=== PATIENT | female | born 1975 | race Caucasian/White ===

== ENCOUNTER 2017-04-02 14:33 | Emergency (ER) | payer MEDICAID ==
--- NOTE | 2017-04-02 15:07 | ED Physician Documentation ---
PD HPI DYSPNEA - Stated complaint Stated Complaint: SOA/HEART PALP - Chief complaint Chief Complaint: General - History obtained from History obtained from: Patient, Family - History of Present Illness Timing - onset: Last night Timing - onset during: Rest Timing - details: Still present Inciting event(s): Immobilization/travel Worsened by: Exertion Associated symptoms: Bilateral edema. No: Fever, Cough, Chest pain / discomfort Similar symptoms before: Diagnosis (prior history of pulmonary embolus in 2012.) , Other (status post heart transplant in 2008 for hypertrophic cardiomyopathy.) - Treatment prior to arrival Treatment prior to arrival: The patient took an extra dose of torsemide prior to arrival. - Additional information Additional information: The patient is a 41-year-old female who presents with dyspnea that started last night after a plane flight from [place]. She has a history of heart transplant for hypertrophic cardiomyopathy. She was diagnosed and treated for pulmonary embolus in 2012. She is no longer taking anticoagulation medication. She noticed bilateral leg swelling after the plane flight, so took an extra torsemide today. She denies cough or fever. She denies chest pain but does admit to slight chest tightness. She lives in [place], and is visiting here for and [facility]. Review of Systems Constitutional: denies: Fever Ears: denies: Tinnitus/ringing Nose: denies: Congestion Throat: denies: Sore throat Cardiac: reports: Chest pain / pressure (slight chest tightness.). denies: Palpitations Respiratory: reports: Dyspnea. denies: Cough GI: denies: Abdominal Pain, Nausea, Vomiting : denies: Dysuria Skin: denies: Rash Musculoskeletal: reports: Extremity swelling. denies: Back pain Neurologic: denies: Focal weakness, Numbness, Headache Psychiatric: reports: Anxiety PD PAST MEDICAL HISTORY - Past Medical History Respiratory: Pneumonia Endocrine/Autoimmune: None GI: Hiatal hernia CREW LEAD: None : None Psych: Depression, Anxiety, Panic attacks Derm: None - Past Surgical History Past Surgical History: Yes Cardiovascular: Other (S/P Heart Transplant in 2002.) - Present Medications Home Medications: Ambulatory Orders Medication Instructions Recorded Confirmed Effexor 37.5 mg ORAL BID 02/23/13 04/20/13 Magnesium Oxide 800 mg ORAL BID 02/23/13 04/20/13 Prograf 7.5 mg ORAL BID 02/23/13 04/20/13 Nystatin 100,000 unit PO Q4-6H 03/16/13 04/20/13 Omeprazole [PriLOSEC] 20 mg PO BID 03/16/13 04/20/13 Pravastatin Sodium 10 mg PO HS 03/16/13 04/20/13 Trazodone HCl 100 mg PO HS 03/16/13 04/20/13 Valganciclovir HCl [Valcyte] 450 mg PO DAILY 03/16/13 04/20/13 Torsemide [Demadex] 10 mg PO DAILY #30 tablet 04/21/13 Amoxicillin 500 mg PO TID 10 Days 01/02/14 Calcium Carbonate/Vitamin D3 1 each PO DAILY 01/02/14 01/02/14 [Calcium 500 + D Tablet] Mycophenolic Acid 720 mg PO BID 01/02/14 01/02/14 Potassium Chloride 10 meq PO BID 01/02/14 01/02/14 PredniSONE [PredniSONE INTENSOL] 5 mg PO DAILY 01/02/14 01/02/14 Vitamin [Trinatal Rx 1] 1 each PO DAILY 01/02/14 01/02/14 Senna [Senokot] 8.6 mg PO DAILY 01/02/14 01/02/14 Sulfamethoxazole/Trimethoprim 1 each PO BID 01/02/14 01/02/14 [Sulfamethoxazole-Tmp Ds Tablet] Tacrolimus 6 mg PO DAILY 01/02/14 01/02/14 Tacrolimus [Hecoria] 7 mg PO DAILY 01/02/14 01/02/14 LORazepam [Ativan] 0.5 mg PO Q8H PRN #15 tablet 04/02/17 - Allergies Allergies/Adverse Reactions: Allergies Allergy/AdvReac Type Severity Reaction Status Date / Time No Known Drug Allergies Allergy Verified 02/23/13 01:01 - Social History Does the pt smoke?: No Smoking Status: Never smoker Does the pt drink ETOH?: No Does the pt have substance abuse?: No - Immunizations Immunizations are current?: Yes - POLST Patient has POLST: No PD ED PE NORMAL - Vitals Vital signs reviewed: Yes (tachycardia) - General General: Alert and oriented X 3, Well developed/nourished - HEENT HEENT: Atraumatic, Pharynx benign - Neck Neck: No adenopathy, No JVD - Cardiac Cardiac: No murmur, Other (rapid rate, regular rhythm.) - Respiratory Respiratory: Clear bilaterally (No wheezes, rales, or rhonchi.) - Abdomen Abdomen: Soft, Non tender - Back Back: No CVA TTP - Derm Derm: No rash - Extremities Extremities: No calf tenderness / cord, Other (1+ pedal edema bilaterally.) - Neuro Neuro: Alert and oriented X 3, No motor deficit, No sensory deficit PD ED PE EXPANDED - Psych Psych: Anxious Results - Vitals Vitals: Vital Signs - 24 hr 04/02/17 04/02/17 04/02/17 14:41 17:35 18:06 Temperature 36.5 C 36.4 C L Heart Rate 120 H 111 H 108 H Respiratory 20 18 16 Rate Blood Pressure 129/96 H 117/96 H 122/79 O2 Saturation 99 100 99 04/02/17 04/02/17 18:10 18:25 Temperature Heart Rate 117 H 111 H Respiratory 18 Rate Blood Pressure 122/79 O2 Saturation 100 Oxygen O2 Source Room air - EKG (time done) 14:52 Rate: Rate (enter#) (117) Rhythm: Sinus tachycardia [place]: LAD, Anterior hemiblock Intervals: RBBB Ischemia: Q waves (in lateral precordial leads) Computer interpretation: Agree with computer - Labs Labs: Laboratory Tests 04/02/17 04/02/17 04/02/17 14:50 14:50 14:50 WBC 7.6 RBC 4.30 Hgb 13.1 Hct 40.0 MCV 93.0 MCH 30.5 MCHC 32.8 RDW 16.0 H Plt Count 126 L MPV 10.9 H Neut # 5.7 Lymph # 0.9 L [place] # 0.6 Eos # 0.4 Baso # 0.1 Absolute Nucleated RBC 0.00 Nucleated RBCs 0.0 D-Dimer 848.1 H Sodium 138 Potassium 3.3 L Chloride 102 Carbon Dioxide 26 Anion Gap 10.0 BUN 18 Creatinine 1.1 H Estimated GFR (MDRD) 55 L Glucose 102 H Calcium 9.5 Total Bilirubin 1.0 AST 27 ALT 20 Alkaline Phosphatase 96 Troponin I Total Protein 7.2 Albumin 4.4 Globulin 2.8 Albumin/Globulin Ratio 1.6 Lipase 25 Urine Color Urine Clarity Urine pH Ur Specific [place] Urine Protein Urine Glucose (UA) Urine Ketones Urine Occult Blood Urine Nitrite Urine Bilirubin Urine Urobilinogen Ur Leukocyte Esterase Ur Microscopic Review Urine Culture Comments 04/02/17 04/02/17 14:50 15:15 WBC RBC Hgb Hct MCV MCH MCHC RDW Plt Count MPV Neut # Lymph # [place] # Eos # Baso # Absolute Nucleated RBC Nucleated RBCs D-Dimer Sodium Potassium Chloride Carbon Dioxide Anion Gap BUN Creatinine Estimated GFR (MDRD) Glucose Calcium Total Bilirubin AST ALT Alkaline Phosphatase Troponin I < 0.04 Total Protein Albumin Globulin Albumin/Globulin Ratio Lipase Urine Color YELLOW Urine Clarity CLEAR Urine pH 6.0 Ur Specific [place] <=1.005 Urine Protein NEGATIVE Urine Glucose (UA) NEGATIVE Urine Ketones NEGATIVE Urine Occult Blood NEGATIVE Urine Nitrite NEGATIVE Urine Bilirubin NEGATIVE Urine Urobilinogen 0.2 (NORMAL) Ur Leukocyte Esterase NEGATIVE Ur Microscopic Review NOT INDICATED Urine Culture Comments NOT INDICATED - Rads (name of study) CT Angio (PE) Radiology: Prelim report reviewed, EMP read contemporaneously, See rad report (1 ) No evidence of acute pulmonary embolism to the mid segment to branch level. 2 ) The lungs demonstrate no evidence of focal infiltrate. 3) There is no evidence of thoracic aortic dissection. 4) There are subcentimeter mediastinal lymph nodes. There is a mild mediastinal fat stranding. These findings are stable. 5) There is a small amount of upper abdominal ascites.) CXR Radiology: Prelim report reviewed, EMP read contemporaneously, See rad report ( Mild haziness suspicious for edema.) PD MEDICAL DECISION MAKING - ED course Complexity details: reviewed old records, reviewed results, re-evaluated patient , considered differential, d/w patient, d/w family ED course: The patient's presentation is most consistent with [id number] congestive heart failure. Consideration was given to possibility of pulmonary embolus. Her d-dimer was elevated at 848, but a subsequent CT pulmonary angiogram reveals no evidence of pulmonary embolus. Her electrocardiogram does not reveal ischemic abnormalities, and her troponin level is normal. Treatment in the emergency department included administration of Ativan 0.5 mg orally. She had already taken an extra dose of torsemide prior to arrival, and was diuresing while in the emergency department. By the time of discharge she felt subjectively improved. She is being discharged with prescription for Ativan, fifteen 0.5 mg tablets. I discussed with her and her mother the diagnosis, outpatient follow-up, as well as potentially worrisome signs or symptoms that should prompt reevaluation in the emergency department. Departure - Departure Disposition: 01 Home, Self Care Clinical Impression: Status post heart transplant CHF NYHA class III (symptoms with mildly strenuous activities) Qualifiers: Congestive heart failure type: unspecified congestive heart failure type Qualified Code(s): I50.9 - Heart failure, unspecified Condition: Stable Instructions: ED CHF General Prescriptions: LORazepam [Ativan] 0.5 mg PO Q8H PRN #15 tablet PRN Reason: Anxiety Comments: Continue taking torsemide as prescribed, and you can take one extra tablet tomorrow if you continue to have excessive fluid. Follow up with your primary physician upon return to [place]. Return to the emergency department if you develop increasing shortness of breath , pain in your chest, or otherwise worsening symptoms. Discharge Date/Time: 04/02/17 18:25
[2017-04-02 15:20] LABS: BASOPHILS # (AUTO) 0.1 10^3/uL (0.0-0.1); EOSINOPHILS # (AUTO) 0.4 10^3/uL (0.0-0.7); EOSINOPHILS % (AUTO) 5.9 %; HGB - HEMOGLOBIN 13.1 g/dL (12.0-16.0); LYMPHOCYTES # (AUTO) 0.9 10^3/uL (1.5-3.5); LYMPHOCYTES % (AUTO) 11.5 %; MEAN CORPUSCULAR HEMOGLOBIN 30.5 pg (27.0-31.0); MEAN CORPUSCULAR HGB CONC 32.8 g/dL (32.0-36.0); MEAN PLATELET VOLUME 10.9 fL (7.9-10.8); MONOCYTES # (AUTO) 0.6 10^3/uL (0.0-1.0); MONOCYTES % (AUTO) 7.3 %; NEUTROPHILS # (AUTO) 5.7 10^3/uL (1.5-6.6); NEUTROPHILS % (AUTO) 74.3 %; UNCORRECTED WHITE BLOOD COUNT 7.6 x10^3/uL; WHITE BLOOD COUNT 7.6 x10^3/uL (4.8-10.8)
[2017-04-02] MEDS ORDERED: LORazepam 2 MG/ML SYRINGE IVP STA (15:34)
[2017-04-02 15:35] LABS: BILIRUBIN,URINE NEGATIVE (NEGATIVE)
[2017-04-02] MEDS ORDERED: LORazepam 2 MG/ML SYRINGE ONE (15:36)
[2017-04-02 15:39] LABS: ALBUMIN/GLOBULIN RATIO 1.6 (1.0-2.2); CALCIUM 9.5 mg/dL (8.5-10.3); CREATININE 1.1 mg/dL (0.4-1.0); POTASSIUM 3.3 mmol/L (3.5-5.0); TOTAL PROTEIN 7.2 g/dL (6.7-8.2)
[2017-04-02 15:46] LABS: UA CHARGE (STRIP ONLY) YES; UR CULTURE IF IND NOT INDICATED
--- NOTE | 2017-04-02 16:13 | XRAY Preliminary Report ---
Exam: XR Chest 2 View PA/LAT IMPRESSION: Mild haziness, suspicious for edema. [facility] SITE ID: [id number]
--- NOTE | 2017-04-02 16:16 | XRAY Report ---
EXAM: CHEST RADIOGRAPHY EXAM DATE: 04/02/2017 03:56 PM. CLINICAL HISTORY: Dyspnea. COMPARISON: 01/02/2014. TECHNIQUE: 2 views. FINDINGS: Lungs/Pleura: Mild haziness of lung markings, study. No localized infiltrate, consolidation, effusion , or pneumothorax. Mediastinum: Mild increased cardiomegaly. Upper lobe vessels not distended. Other: Status post median sternotomy. IMPRESSION: Mild haziness, suspicious for edema. [facility] Referring Provider Line: [phone] SITE ID: [id number]
[2017-04-02] MEDS ORDERED: IOPAMIDOL-300 100 ML VIAL IVP ONE (17:23)
--- NOTE | 2017-04-02 17:57 | CT Preliminary Report ---
Exam: CT Chest Angio (PE) IMPRESSION: 1. No evidence of acute pulmonary embolism through the mid segmental branch level. 2. The lungs demonstrate no evidence of focal infiltrate. 3. There is no evidence of thoracic aortic dissection. 4. There are subcentimeter mediastinal lymph nodes. There is mild mediastinal fat stranding. These fi ndings are stable. 5. There is small amount of upper abdomen ascites. [id number]
--- NOTE | 2017-04-02 18:00 | CT Report ---
EXAM: CT ANGIOGRAM CHEST EXAM DATE: 04/02/2017 05:29 PM. CLINICAL HISTORY: Dyspnea with elevated d-dimer, after plane ride. COMPARISON: 02/23/2013. TECHNIQUE: Routine helical imaging was performed through the chest in the pulmonary arterial phase. I V Contrast: 90 cc Isovue-300. Reconstructions: Coronal 3-D MIP reconstructions.Sagittal and coronal. In accordance with CT protocol optimization, one or more of the following dose reduction techniques w ere utilized for this exam: automated exposure control, adjustment of mA and/or KV based on patient s ize, or use of iterative reconstructive technique. FINDINGS: Pulmonary Arteries: Diagnostic quality: Adequate through the mid segmental arteries. Portions of distal branch vessels ar e obscured secondary to timing of contrast bolus and mild motion artifact. No evidence for acute or c hronic pulmonary emboli. Lungs/Pleura: No evidence of acute consolidation or effusion. There is stable juxtapleural reticular density within the anteromedial aspect of the right middle lobe. This probably represents atelectasis . No central airway abnormalities are seen. No evidence of pneumothorax. Mediastinum: Patient has undergone median sternotomy. There is mildly increased transverse diameter o f the heart. 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 There are subcentimeter mediastinal lymph nodes. None clearly enlarged by CT size criteria. This is stable. Thoracic Aorta: There is no evidence of thoracic aortic dissection or aneurysm. Upper Abdomen: There is suggestion of pericholecystic edema, but the gallbladder is decompressed. The re are subcentimeter upper mesenteric lymph nodes. There is mild right perinephric stranding. There i s a small amount of perihepatic fluid. There is splenomegaly. Other: None. IMPRESSION: 1. No evidence of acute pulmonary embolism through the mid segmental branch level. 2. The lungs demonstrate no evidence of focal infiltrate. 3. There is no evidence of thoracic aortic dissection. 4. There are subcentimeter mediastinal lymph nodes. There is mild mediastinal fat stranding. These fi ndings are stable. 5. There is small amount of upper abdomen ascites. [facility] Referring Provider Line: [phone] SITE ID: [id number]
[2017-04-02 18:06] VITALS: BP 122/79
== END 2017-04-02 18:25 | disposition home or self-care (01) ==
LOC: ED 14:33
DX: I50.9 Heart failure, unspecified (principal); Z94.1 Heart transplant status; I45.2 Bifascicular block; R94.31 Abnormal electrocardiogram [ECG] [EKG]
CPT/HCPCS: 36415; 71020; 71275; 80053; 81003; 83690; 84484; 85025; 85379; 93005; 93010; 96374; 99283; 99284; J2060; Q9967; 81001; 87086

== ENCOUNTER 2018-06-04 17:10 | Emergency (ER) | payer MEDICARE, MEDICAID ==
[2018-06-04 17:45] LABS: INR 1.3 (0.8-1.2); PT - PROTHROMBIN TIME 14.5 secs (9.9-12.6)
[2018-06-04 17:47] LABS: BASOPHILS # (AUTO) 0.1 10^3/uL (0.0-0.1); BASOPHILS % (AUTO) 1.6 %; EOSINOPHILS # (AUTO) 0.3 10^3/uL (0.0-0.7); EOSINOPHILS % (AUTO) 4.3 %; HGB - HEMOGLOBIN 8.9 g/dL (12.0-16.0); LYMPHOCYTES % (AUTO) 14.9 %; MEAN CORPUSCULAR HEMOGLOBIN 26.7 pg (27.0-31.0); MEAN CORPUSCULAR HGB CONC 32.2 g/dL (32.0-36.0); MEAN PLATELET VOLUME 9.2 fL (7.9-10.8); MONOCYTES # (AUTO) 0.4 10^3/uL (0.0-1.0); MONOCYTES % (AUTO) 6.1 %; NEUTROPHILS # (AUTO) 4.9 10^3/uL (1.5-6.6); NEUTROPHILS % (AUTO) 73.1 %; PLT - PLATELET COUNT 349 10^3/uL (130-450); RED BLOOD COUNT 3.31 10^6/uL (4.20-5.40); RED CELL DISTRIBUTION WIDTH 20.7 % (12.0-15.0); WHITE BLOOD COUNT 6.8 x10^3/uL (4.8-10.8)
--- NOTE | 2018-06-04 17:52 | ED Physician Documentation ---
PD HPI ABD PAIN - Stated complaint Stated Complaint: SOA/CP/AB PX - Chief complaint Chief Complaint: Cardiac - History obtained from History obtained from: Patient - History of Present Illness Timing - onset: Other (She lives in [place] is out here visiting family. She has a history of a heart transplant in 2002 complicated more recently by congestive heart failure and coronary disease with a single recent stent to the left main coronary artery. In the last 6 months she started to develop ascites because of the heart failure and has about 6 paracenteses and is here requesting another one because of abdominal distention and dyspnea.) Review of Systems Constitutional: denies: Fever, Chills, Fatigue Cardiac: denies: Chest pain / pressure, Palpitations Respiratory: reports: Dyspnea. denies: Cough PD PAST MEDICAL HISTORY - Past Medical History Cardiovascular: Congestive heart failure, Coronary artery disease, Other Respiratory: Pneumonia Endocrine/Autoimmune: None GI: Hiatal hernia TAX REPRESENTATIVE: None : None Psych: Depression, Anxiety, Panic attacks Derm: None Other Past Medical History: Heart transplant 2002 - Past Surgical History Past Surgical History: Yes Cardiovascular: Other - Present Medications Home Medications: Ambulatory Orders Medication Instructions Recorded Confirmed Prograf 7.5 mg ORAL BID 02/23/13 04/20/13 Omeprazole [PriLOSEC] 20 mg PO BID 03/16/13 04/20/13 Trazodone HCl 100 mg PO HS 03/16/13 04/20/13 Torsemide [Demadex] 10 mg PO DAILY #30 tablet 04/21/13 Senna [Senokot] 8.6 mg PO DAILY 01/02/14 01/02/14 LORazepam [Ativan] 0.5 mg PO Q8H PRN #15 tablet 04/02/17 Aspirin 81 mg PO 06/04/18 Clopidogrel [Plavix] 06/04/18 Gabapentin 400 mg PO 06/04/18 Hydrocortisone 10 mg PO 06/04/18 Mycophenolate Sodium [Mycophenolic DAILY 06/04/18 Acid] Mycophenolate Sodium [Myfortic] DAILY 06/04/18 Omeprazole [PriLOSEC] 20 mg PO DAILY 06/04/18 06/04/18 Simvastatin 40 mg PO 06/04/18 Tacrolimus 2.5 mg PO BID 06/04/18 06/04/18 Torsemide 40 mg PO BID 06/04/18 06/04/18 hydrALAZINE [Apresoline] 25 mg PO QID 06/04/18 06/04/18 oxyCODONE [Roxicodone] 10 mg PO Q6H 06/04/18 06/04/18 - Allergies Allergies/Adverse Reactions: Allergies Allergy/AdvReac Type Severity Reaction Status Date / Time No Known Drug Allergies Allergy Verified 02/23/13 01:01 - Social History Does the pt smoke?: No Smoking Status: Never smoker Does the pt drink ETOH?: No Does the pt have substance abuse?: No - Immunizations Immunizations are current?: Yes - POLST Patient has POLST: No PD ED PE NORMAL - Vitals Vital signs reviewed: Yes (She says the tachycardia is normal for her) - General General: Alert and oriented X 3, No acute distress - Cardiac Cardiac: RRR, No murmur - Respiratory Respiratory: No respiratory distress, Clear bilaterally - Abdomen Abdomen: Other (Tense ascites, nontender) - Extremities Extremities: Other (Mild pitting pedal edema) - Neuro Neuro: Alert and oriented X 3, Normal speech Results - Vitals Vitals: Vital Signs - 24 hr 06/04/18 06/04/18 06/04/18 17:20 17:47 18:22 Temperature 36.7 C Heart Rate 111 H 121 H 118 H Respiratory 18 20 18 Rate Blood Pressure 98/68 96/71 92/65 O2 Saturation 100 100 100 06/04/18 06/04/18 06/04/18 18:24 18:27 18:30 Temperature Heart Rate 112 H 120 H 120 H Respiratory 18 20 18 Rate Blood Pressure 83/67 L 92/72 102/67 O2 Saturation 100 100 100 06/04/18 06/04/18 06/04/18 18:32 18:38 18:46 Temperature Heart Rate 120 H 111 H 111 H Respiratory 20 22 18 Rate Blood Pressure 96/68 96/68 97/66 O2 Saturation 100 100 99 06/04/18 06/04/18 19:00 19:03 Temperature Heart Rate 111 H 74 Respiratory 18 20 Rate Blood Pressure 93/70 94/62 O2 Saturation 100 100 Oxygen O2 Source Room air - EKG (time done) 1723 Rate: Rate (enter#) Rhythm: Sinus tachycardia (Versus junctional tachycardia with a rate of 109) [place]: Normal Intervals: Prolonged QT, RBBB (Incomplete) Ischemia: Non specific changes Compare to prior EKG: Unchanged from prior EKG (No significant change from April 02 of last year.) Computer interpretation: Agree with computer - Labs Labs: Laboratory Tests 06/04/18 06/04/18 06/04/18 17:30 17:30 17:30 WBC 6.8 RBC 3.31 L Hgb 8.9 L Hct 27.5 L MCV 83.0 MCH 26.7 L MCHC 32.2 RDW 20.7 H Plt Count 349 MPV 9.2 Neut # (Auto) 4.9 Lymph # (Auto) 1.0 L [place] # (Auto) 0.4 Eos # (Auto) 0.3 Baso # (Auto) 0.1 Absolute Nucleated RBC 0.00 Nucleated RBC % 0.0 Manual Slide Review Indicated Platelet Estimate NORMAL (130-450,000) Platelet Morphology NORMAL APPEARANCE RBC Morph Micro Appear 1+ OVALOCYTES PT 14.5 H INR 1.3 H Sodium 127 L Potassium 3.2 L Chloride 90 L Carbon Dioxide 25 Anion Gap 12.0 BUN 63 H Creatinine 3.0 H Estimated GFR (MDRD) 17 L Glucose 98 Lactic Acid Calcium 8.7 Total Bilirubin 1.1 H AST 18 ALT 13 Alkaline Phosphatase 113 Troponin I Total Protein 6.9 Albumin 3.8 Globulin 3.1 Albumin/Globulin Ratio 1.2 Lipase 37 06/04/18 06/04/18 17:30 17:35 WBC RBC Hgb Hct MCV MCH MCHC RDW Plt Count MPV Neut # (Auto) Lymph # (Auto) [place] # (Auto) Eos # (Auto) Baso # (Auto) Absolute Nucleated RBC Nucleated RBC % Manual Slide Review Platelet Estimate Platelet Morphology RBC Morph Micro Appear PT INR Sodium Potassium Chloride Carbon Dioxide Anion Gap BUN Creatinine Estimated GFR (MDRD) Glucose Lactic Acid 0.7 Calcium Total Bilirubin AST ALT Alkaline Phosphatase Troponin I < 0.04 Total Protein Albumin Globulin Albumin/Globulin Ratio Lipase Procedures - Paracentesis Preparation: Consent obtained, Local anesthesia Location: LLQ Technique: Z-tract, Catheter over needle Fluid: Clear, Volume - enter cc (3liters) Aftercare: No complications PD MEDICAL DECISION MAKING - ED course ED course: 42-year-old woman with history of heart transplant and CHF presents with recurrent abdominal ascites for which she requested paracentesis because it is symptomatic causing dyspnea, she had 3 L out with symptomatic improvement. - Sepsis Event Vital Signs: Vital Signs - 24 hr 06/04/18 06/04/18 06/04/18 17:20 17:47 18:22 Temperature 36.7 C Heart Rate 111 H 121 H 118 H Respiratory 18 20 18 Rate Blood Pressure 98/68 96/71 92/65 O2 Saturation 100 100 100 06/04/18 06/04/18 06/04/18 18:24 18:27 18:30 Temperature Heart Rate 112 H 120 H 120 H Respiratory 18 20 18 Rate Blood Pressure 83/67 L 92/72 102/67 O2 Saturation 100 100 100 06/04/18 06/04/18 06/04/18 18:32 18:38 18:46 Temperature Heart Rate 120 H 111 H 111 H Respiratory 20 22 18 Rate Blood Pressure 96/68 96/68 97/66 O2 Saturation 100 100 99 06/04/18 06/04/18 19:00 19:03 Temperature Heart Rate 111 H 74 Respiratory 18 20 Rate Blood Pressure 93/70 94/62 O2 Saturation 100 100 Oxygen O2 Source Room air Departure - Departure Disposition: 01 Home, Self Care Clinical Impression: Status post heart transplant Ascites Qualifiers: Ascites type: other type Qualified Code(s): R18.8 - Other ascites Condition: Good Record reviewed to determine appropriate education?: Yes Instructions: Paracentesis Dc Discharge Date/Time: 06/04/18 19:06
[2018-06-04 17:53] LABS: ALBUMIN 3.8 g/dL (3.2-5.5); ALBUMIN/GLOBULIN RATIO 1.2 (1.0-2.2); BILIRUBIN,TOTAL 1.1 mg/dL (0.2-1.0); CALCIUM 8.7 mg/dL (8.5-10.3); TOTAL PROTEIN 6.9 g/dL (6.7-8.2)
[2018-06-04 18:11] LABS: PLATELET ESTIMATE, MANUAL NORMAL (130-450,000) (NORMAL); PLATELET MORPHOLOGY NORMAL APPEARANCE (NORMAL)
[2018-06-04 19:03] VITALS: BP 94/62
== END 2018-06-04 19:06 | disposition home or self-care (01) ==
LOC: ED 17:10
DX: R18.8 Other ascites (principal); R00.0 Tachycardia, unspecified; I45.10 Unspecified right bundle-branch block; I45.81 Long QT syndrome; Z94.1 Heart transplant status
CPT/HCPCS: 36415; 49082; 80053; 83605; 83690; 84484; 85025; 85610; 93005; 99283; 99284

== ENCOUNTER 2018-06-10 19:44 | Emergency (ER) | payer MEDICARE, MEDICAID ==
[2018-06-10] MEDS ORDERED: LORazepam 2 MG/ML VIAL IVP STA (19:59)
[2018-06-10] MEDS ORDERED: LIDOCAINE 1%-EPI 1:100000 30 ML MDV SUBQ STA (20:01)
--- NOTE | 2018-06-10 20:01 | ED Physician Documentation ---
PD HPI ABD PAIN - Stated complaint Stated Complaint: DRAINAGE NEEDED - History obtained from History obtained from: Patient, Family - History of Present Illness Timing - onset: Other (This is a 42-year-old woman who is about 15 years out from a heart transplant complicated recently by coronary disease and heart failure with The development of ascites. She is visiting from [place] and requesting a therapeutic paracentesis because of abdominal distention and dyspnea. She also wonders if her potassium might be low because she is having muscle spasms and cramping.) Review of Systems Constitutional: denies: Fever, Chills Cardiac: denies: Chest pain / pressure, Palpitations Respiratory: reports: Dyspnea. denies: Cough GI: reports: Abdominal Pain. 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 : None Psych: Depression, Anxiety, Panic attacks Derm: None - Past Surgical History Past Surgical History: Yes Cardiovascular: Other - Present Medications Home Medications: Ambulatory Orders Medication Instructions Recorded Confirmed Prograf 7.5 mg ORAL BID 02/23/13 04/20/13 Omeprazole [PriLOSEC] 20 mg PO BID 03/16/13 04/20/13 Trazodone HCl 100 mg PO HS 03/16/13 04/20/13 Torsemide [Demadex] 10 mg PO DAILY #30 tablet 04/21/13 Senna [Senokot] 8.6 mg PO DAILY 01/02/14 01/02/14 LORazepam [Ativan] 0.5 mg PO Q8H PRN #15 tablet 04/02/17 Aspirin 81 mg PO 06/04/18 Clopidogrel [Plavix] 06/04/18 Gabapentin 400 mg PO 06/04/18 Hydrocortisone 10 mg PO 06/04/18 Mycophenolate Sodium [Mycophenolic DAILY 06/04/18 Acid] Mycophenolate Sodium [Myfortic] DAILY 06/04/18 Omeprazole [PriLOSEC] 20 mg PO DAILY 06/04/18 06/04/18 Simvastatin 40 mg PO 06/04/18 Tacrolimus 2.5 mg PO BID 06/04/18 06/04/18 Torsemide 40 mg PO BID 06/04/18 06/04/18 hydrALAZINE [Apresoline] 25 mg PO QID 06/04/18 06/04/18 oxyCODONE [Roxicodone] 10 mg PO Q6H 06/04/18 06/04/18 Lorazepam [Ativan] 1 mg PO TID PRN #7 tablet 06/10/18 oxyCODONE [Roxicodone] 10 mg PO Q6H PRN #15 tablet 06/10/18 - Allergies Allergies/Adverse Reactions: Allergies Allergy/AdvReac Type Severity Reaction Status Date / Time No Known Drug Allergies Allergy Verified 06/10/18 20:01 - Social History Does the pt smoke?: No Smoking Status: Never smoker Does the pt drink ETOH?: No Does the pt have substance abuse?: No - Immunizations Immunizations are current?: Yes - POLST Patient has POLST: No PD ED PE NORMAL - Vitals Vital signs reviewed: Yes - General General: Alert and oriented X 3 (She is panicky and hyperventilating) - Cardiac Cardiac: RRR (But tachycardic), No murmur - Respiratory Respiratory: No respiratory distress, Clear bilaterally - Abdomen Abdomen: Other (Nearly tense ascites, nontender) - Back Back: No CVA TTP, No spinal TTP - Derm Derm: Normal color, Warm and dry - Extremities Extremities: No edema, No calf tenderness / cord - Neuro Neuro: Alert and oriented X 3, Normal speech - Psych Psych: Normal mood, Normal affect Results - Vitals Vitals: Vital Signs - 24 hr 06/10/18 06/10/18 06/10/18 19:57 20:29 20:43 Temperature 36.8 C Heart Rate 126 H 135 H 136 H Respiratory 24 20 18 Rate Blood Pressure 107/82 H 109/72 104/62 O2 Saturation 100 99 99 Oxygen O2 Source Room air - Labs Labs: Laboratory Tests 06/10/18 06/10/18 06/10/18 20:05 20:05 20:05 WBC 10.2 RBC 3.70 L Hgb 9.6 L Hct 30.7 L MCV 82.8 MCH 25.8 L MCHC 31.2 L RDW 20.0 H Plt Count 442 MPV 8.6 Neut # (Auto) 8.5 H Lymph # (Auto) 0.6 L [place] # (Auto) 0.8 Eos # (Auto) 0.2 Baso # (Auto) 0.1 Absolute Nucleated RBC 0.00 Nucleated RBC % 0.0 PT 15.5 H INR 1.4 H Sodium 136 Potassium 4.7 Chloride 100 L Carbon Dioxide 24 Anion Gap 12.0 BUN 46 H Creatinine 1.6 H Estimated GFR (MDRD) 36 L Glucose 110 H Calcium 8.7 Total Bilirubin 0.9 AST 34 ALT 18 Alkaline Phosphatase 148 H Total Protein 6.8 Albumin 3.7 Globulin 3.1 Albumin/Globulin Ratio 1.2 Lipase 46 Procedures - Paracentesis Preparation: Consent obtained, Ultrasound guidance, Sterile prep and drape, Local anesthesia Location: RLQ Technique: Z-tract, Catheter over needle Fluid: Cloudy, Volume - enter cc (4200) Aftercare: No complications, Patient tolerated well, Dressing applied PD MEDICAL DECISION MAKING - ED course ED course: 42-year-old woman with history of heart transplant presents with recurrent ascites due to CHF. Note that she has chronic tachycardia. Paracentesis was done with 4.2 L out. She also complains of chronic left hip pain which is been worked up without relevant findings and needs a refill of her pain and anxiety medications. - Sepsis Event Vital Signs: Vital Signs - 24 hr 06/10/18 06/10/18 06/10/18 19:57 20:29 20:43 Temperature 36.8 C Heart Rate 126 H 135 H 136 H Respiratory 24 20 18 Rate Blood Pressure 107/82 H 109/72 104/62 O2 Saturation 100 99 99 Oxygen O2 Source Room air Departure - Departure Disposition: 01 Home, Self Care Clinical Impression: Status post heart transplant, Left hip pain Ascites Qualifiers: Ascites type: other type Qualified Code(s): R18.8 - Other ascites Condition: Good Record reviewed to determine appropriate education?: Yes Instructions: Paracentesis Dc Prescriptions: Lorazepam [Ativan] 1 mg PO TID PRN #7 tablet PRN Reason: Anxiety oxyCODONE [Roxicodone] 10 mg PO Q6H PRN #15 tablet PRN Reason: Pain Comments: Continue your routine medications and 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 Return if worse.
[2018-06-10 20:26] LABS: INR 1.4 (0.8-1.2); PT - PROTHROMBIN TIME 15.5 secs (9.9-12.6)
[2018-06-10 20:27] LABS: BASOPHILS # (AUTO) 0.1 10^3/uL (0.0-0.1); BASOPHILS % (AUTO) 1.2 %; EOSINOPHILS # (AUTO) 0.2 10^3/uL (0.0-0.7); EOSINOPHILS % (AUTO) 1.5 %; HGB - HEMOGLOBIN 9.6 g/dL (12.0-16.0); LYMPHOCYTES # (AUTO) 0.6 10^3/uL (1.5-3.5); LYMPHOCYTES % (AUTO) 6.3 %; MEAN CORPUSCULAR HEMOGLOBIN 25.8 pg (27.0-31.0); MEAN CORPUSCULAR HGB CONC 31.2 g/dL (32.0-36.0); MEAN CORPUSCULAR VOLUME 82.8 fL (81.0-99.0); MEAN PLATELET VOLUME 8.6 fL (7.9-10.8); MONOCYTES # (AUTO) 0.8 10^3/uL (0.0-1.0); MONOCYTES % (AUTO) 8.2 %; NEUTROPHILS # (AUTO) 8.5 10^3/uL (1.5-6.6); NEUTROPHILS % (AUTO) 82.8 %; PLT - PLATELET COUNT 442 10^3/uL (130-450); WHITE BLOOD COUNT 10.2 x10^3/uL (4.8-10.8)
[2018-06-10 20:34] LABS: ALBUMIN 3.7 g/dL (3.2-5.5); ALBUMIN/GLOBULIN RATIO 1.2 (1.0-2.2); BILIRUBIN,TOTAL 0.9 mg/dL (0.2-1.0); CALCIUM 8.7 mg/dL (8.5-10.3); CREATININE 1.6 mg/dL (0.4-1.0); TOTAL PROTEIN 6.8 g/dL (6.7-8.2)
[2018-06-10] MEDS ORDERED: HYDROmorphone 1 MG/ML CARPUJECT IVP STA (20:35)
[2018-06-10] MEDS ORDERED: HYDROmorphone 1 MG/ML CARPUJECT ONE (20:37)
[2018-06-10] MEDS ORDERED: oxyCODONE/ACET 5/325 Prepack 4 PO STA (20:52)
[2018-06-10 21:09] VITALS: BP 111/76
== END 2018-06-10 21:24 | disposition home or self-care (01) ==
LOC: ED 19:44
DX: R18.8 Other ascites (principal); M25.552 Pain in left hip; F41.0 Panic disorder [episodic paroxysmal anxiety]; Z94.1 Heart transplant status; Z79.02 Long term (current) use of antithrombotics/antiplatelets; Z79.82 Long term (current) use of aspirin
CPT/HCPCS: 36415; 49082; 80053; 83690; 85025; 85610; 96374; 96375; 99284; J1170; J2060

== ENCOUNTER 2018-08-12 18:16 | Emergency (ER) | payer MEDICARE, MEDICAID ==
[2018-08-12 18:23] VITALS: BP 105/68
[2018-08-12 19:39] LABS: BASOPHILS # (AUTO) 0.1 10^3/uL (0.0-0.1); BASOPHILS % (AUTO) 1.8 %; EOSINOPHILS # (AUTO) 0.2 10^3/uL (0.0-0.7); EOSINOPHILS % (AUTO) 2.6 %; HGB - HEMOGLOBIN 11.1 g/dL (12.0-16.0); LYMPHOCYTES % (AUTO) 17.3 %; MEAN CORPUSCULAR HEMOGLOBIN 27.4 pg (27.0-31.0); MEAN CORPUSCULAR HGB CONC 32.3 g/dL (32.0-36.0); MEAN CORPUSCULAR VOLUME 84.8 fL (81.0-99.0); MONOCYTES # (AUTO) 0.6 10^3/uL (0.0-1.0); MONOCYTES % (AUTO) 10.9 %; NEUTROPHILS # (AUTO) 3.9 10^3/uL (1.5-6.6); NEUTROPHILS % (AUTO) 67.4 %; PLT - PLATELET COUNT 225 10^3/uL (130-450); RED BLOOD COUNT 4.04 10^6/uL (4.20-5.40); RED CELL DISTRIBUTION WIDTH 21.6 % (12.0-15.0); WHITE BLOOD COUNT 5.9 x10^3/uL (4.8-10.8)
[2018-08-12 19:42] LABS: INR 1.3 (0.8-1.2)
[2018-08-12 19:49] LABS: ALBUMIN 3.4 g/dL (3.2-5.5); ALBUMIN/GLOBULIN RATIO 1.2 (1.0-2.2); BILIRUBIN,TOTAL 0.4 mg/dL (0.2-1.0); CALCIUM 8.2 mg/dL (8.5-10.3); CREATININE 1.5 mg/dL (0.4-1.0); TOTAL PROTEIN 6.3 g/dL (6.7-8.2)
[2018-08-12 20:01] LABS: PLATELET ESTIMATE, MANUAL NORMAL (130-450,000) (NORMAL); PLATELET MORPHOLOGY NORMAL APPEARANCE (NORMAL); RBC MORPHOLOGY (MULTIPLE) 2+ ANISOCYTOSIS (NORMAL)
--- NOTE | 2018-08-12 20:14 | ED Physician Documentation ---
History of Present Illness - Stated complaint Stated Complaint: FLUID RETENTION - Chief complaint Chief Complaint: Abd Pain - Additonal information Additional information: 42-year-old female with a history of chronic ascites presents the emergency department requesting a therapeutic paracentesis. The patient lives in [place] and is here visiting her brother. The patient had a paracentesis a couple days ago. The patient has no shortness of breath, fevers or abdominal pain. The patient denies any acute complaints. No new or different symptoms. No changes in her medications. No triggering or relieving factors. 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: None : None HEENT: None Psych: Depression, Anxiety, Panic attacks Musculoskeletal: Osteoarthritis Derm: None - Past Surgical History Past Surgical History: Yes /BOILER HELPER: Breast reduction Cardiovascular: Other - Present Medications Home Medications: Ambulatory Orders Medication Instructions Recorded Confirmed Omeprazole [PriLOSEC] 20 mg PO BID 03/16/13 04/20/13 Senna [Senokot] 8.6 mg PO DAILY 01/02/14 01/02/14 LORazepam [Ativan] 0.5 mg PO Q8H PRN #15 tablet 04/02/17 Aspirin 81 mg PO 06/04/18 Clopidogrel [Plavix] 06/04/18 Gabapentin 400 mg PO 06/04/18 Hydrocortisone 10 mg PO 06/04/18 Simvastatin 40 mg PO 06/04/18 Tacrolimus 2.5 mg PO BID 06/04/18 06/04/18 hydrALAZINE [Apresoline] 25 mg PO QID 06/04/18 06/04/18 oxyCODONE [Roxicodone] 10 mg PO Q6H 06/04/18 06/04/18 Lorazepam [Ativan] 1 mg PO TID PRN #7 tablet 06/10/18 oxyCODONE [Roxicodone] 10 mg PO Q6H PRN #15 tablet 06/10/18 Amiodarone [Pacerone] 08/12/18 08/12/18 Atorvastatin [Lipitor] 08/12/18 08/12/18 Bumetanide 08/12/18 08/12/18 Chlorpheniramine Maleate [Allergy 4 mg PO 08/12/18 08/12/18 4-Hour] Cyclobenzaprine [Flexeril] 08/12/18 08/12/18 Ergocalciferol [Vitamin D2] 08/12/18 Ferrous Sulfate 08/12/18 08/12/18 Fluticasone [Flonase] 08/12/18 08/12/18 Furosemide 08/12/18 08/12/18 Potassium Chloride [K-Dur] 20 meq PO BIDWM 08/12/18 08/12/18 Sirolimus 1 mg 08/12/18 Venlafaxine ER [Effexor ER] 08/12/18 08/12/18 - Allergies Allergies/Adverse Reactions: Allergies Allergy/AdvReac Type Severity Reaction Status Date / Time No Known Drug Allergies Allergy Verified 08/12/18 18:23 - Social History Does the pt smoke?: No Smoking Status: Never smoker Does the pt drink ETOH?: No Does the pt have substance abuse?: No - Immunizations Immunizations are current?: Yes - POLST Patient has POLST: No PD ED PE NORMAL - General General: Alert and oriented X 3, No acute distress - HEENT HEENT: Atraumatic, PERRL, EOMI, Ears normal - Cardiac Cardiac: RRR, Strong equal pulses - Respiratory Respiratory: No respiratory distress, Clear bilaterally - Abdomen Abdomen: Soft, Non tender, Non distended - Derm Derm: Normal color - Neuro Neuro: Alert and oriented X 3, Normal speech - Psych Psych: Normal affect Results - Vitals Vitals: Vital Signs - 24 hr 08/12/18 18:20 Temperature 36.5 C Heart Rate 72 Respiratory 20 Rate Blood Pressure 105/68 O2 Saturation 100 Oxygen O2 Source Room air - Labs Labs: Laboratory Tests 08/12/18 08/12/18 08/12/18 19:30 19:30 19:30 WBC 5.9 RBC 4.04 L Hgb 11.1 L Hct 34.3 L MCV 84.8 MCH 27.4 MCHC 32.3 RDW 21.6 H Plt Count 225 MPV 8.0 Neut # (Auto) 3.9 Lymph # (Auto) 1.0 L [place] # (Auto) 0.6 Eos # (Auto) 0.2 Baso # (Auto) 0.1 Absolute Nucleated RBC 0.00 Nucleated RBC % 0.0 Manual Slide Review Indicated WBC Morphology NORMAL APPEARANCE Platelet Estimate NORMAL (130-450,000) Platelet Morphology NORMAL APPEARANCE RBC Morph Micro Appear 2+ ANISOCYTOSIS PT 15.0 H INR 1.3 H APTT Sodium 134 L Potassium 3.1 L Chloride 96 L Carbon Dioxide 28 Anion Gap 10.0 BUN 18 Creatinine 1.5 H Estimated GFR (MDRD) 38 L Glucose 103 H Calcium 8.2 L Total Bilirubin 0.4 AST 25 ALT 19 Alkaline Phosphatase 288 H Total Protein 6.3 L Albumin 3.4 Globulin 2.9 Albumin/Globulin Ratio 1.2 Lipase 34 08/12/18 19:30 WBC RBC Hgb Hct MCV MCH MCHC RDW Plt Count MPV Neut # (Auto) Lymph # (Auto) [place] # (Auto) Eos # (Auto) Baso # (Auto) Absolute Nucleated RBC Nucleated RBC % Manual Slide Review WBC Morphology Platelet Estimate Platelet Morphology RBC Morph Micro Appear PT INR APTT 37.2 H Sodium Potassium Chloride Carbon Dioxide Anion Gap BUN Creatinine Estimated GFR (MDRD) Glucose Calcium Total Bilirubin AST ALT Alkaline Phosphatase Total Protein Albumin Globulin Albumin/Globulin Ratio Lipase PD MEDICAL DECISION MAKING - ED course ED course: The patient has no symptoms to suggest spontaneous bacterial peritonitis and on clinical exam the patient has no evidence of respiratory distress from ascites and her belly is still soft and nontender. The patient is on Plavix, since the patient has not in any distress currently I think that the patient does not require an emergent paracentesis in the emergency department. I recommended that the patient follow-up with her primary care to arrange for an outpatient ultrasound-guided paracentesis by interventional radiology. The patient appears appropriate for discharge and ongoing outpatient management since there is no emergent issue associated with her chronic ascites. The findings and plan were discussed the patient who understands and agrees. I discussed warning signs and recommended returning to the emergency department immediately for any worsening or any concerns. Departure - Departure Disposition: 01 Home, Self Care Clinical Impression: Ascites Qualifiers: Ascites type: other type Qualified Code(s): R18.8 - Other ascites Chronic kidney disease Qualifiers: Chronic kidney disease stage: unspecified stage Qualified Code(s): N18.9 - Chronic kidney disease, unspecified Instructions: ED Ascites Follow-Up: Laly Marie ARNP [Primary Care Provider] - Tomorrow (Please ask your PMD to arrange for an outpatient Paracentesis) Comments: Please return to the emergency department for worsening symptoms or any concerns.
== END 2018-08-12 20:30 | disposition home or self-care (01) ==
LOC: ED 18:16
DX: R18.8 Other ascites (principal); N18.9 Chronic kidney disease, unspecified; Z79.82 Long term (current) use of aspirin; Z79.02 Long term (current) use of antithrombotics/antiplatelets; Z94.1 Heart transplant status
CPT/HCPCS: 36415; 80053; 83690; 85025; 85610; 85730; 99282

== ENCOUNTER 2018-08-16 18:44 | Emergency (ER) | payer MEDICARE, MEDICAID ==
--- NOTE | 2018-08-16 19:13 | ED Physician Documentation ---
PD HPI DYSPNEA - Stated complaint Stated Complaint: SOA/WATER IN BELLY - Chief complaint Chief Complaint: Cardiac - History obtained from History obtained from: Patient - History of Present Illness Timing - onset: Other (42-year-old woman who is well-known to me status post remote heart transplant with CHF presents requesting therapeutic paracentesis for abdominal ascites causing dyspnea.) Review of Systems Constitutional: reports: Reviewed and negative Cardiac: denies: Chest pain / pressure, Palpitations, Calf pain Respiratory: denies: Hemoptysis, Wheezing PD PAST MEDICAL HISTORY - Past Medical History Cardiovascular: Congestive heart failure, Coronary artery disease, Other Respiratory: Pneumonia Neuro: None Endocrine/Autoimmune: None GI: Hiatal hernia 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 : None HEENT: None Psych: Depression, Anxiety, Panic attacks Musculoskeletal: Osteoarthritis Derm: None - Past Surgical History Past Surgical History: Yes /PRODUCT APPLICATIONS ENGINEER: Breast reduction Cardiovascular: Other - Present Medications Home Medications: Ambulatory Orders Medication Instructions Recorded Confirmed Omeprazole [PriLOSEC] 20 mg PO BID 03/16/13 04/20/13 Senna [Senokot] 8.6 mg PO DAILY 01/02/14 01/02/14 LORazepam [Ativan] 0.5 mg PO Q8H PRN #15 tablet 04/02/17 Aspirin 81 mg PO 06/04/18 Clopidogrel [Plavix] 06/04/18 Gabapentin 400 mg PO 06/04/18 Hydrocortisone 10 mg PO 06/04/18 Simvastatin 40 mg PO 06/04/18 Tacrolimus 2.5 mg PO BID 06/04/18 06/04/18 hydrALAZINE [Apresoline] 25 mg PO QID 06/04/18 06/04/18 oxyCODONE [Roxicodone] 10 mg PO Q6H 06/04/18 06/04/18 Lorazepam [Ativan] 1 mg PO TID PRN #7 tablet 06/10/18 oxyCODONE [Roxicodone] 10 mg PO Q6H PRN #15 tablet 06/10/18 Amiodarone [Pacerone] 08/12/18 08/12/18 Atorvastatin [Lipitor] 08/12/18 08/12/18 Bumetanide 08/12/18 08/12/18 Chlorpheniramine Maleate [Allergy 4 mg PO 08/12/18 08/12/18 4-Hour] Cyclobenzaprine [Flexeril] 08/12/18 08/12/18 Ergocalciferol [Vitamin D2] 08/12/18 Ferrous Sulfate 08/12/18 08/12/18 Fluticasone [Flonase] 08/12/18 08/12/18 Furosemide 08/12/18 08/12/18 Potassium Chloride [K-Dur] 20 meq PO BIDWM 08/12/18 08/12/18 Sirolimus 1 mg 08/12/18 Venlafaxine ER [Effexor ER] 08/12/18 08/12/18 - Allergies Allergies/Adverse Reactions: Allergies Allergy/AdvReac Type Severity Reaction Status Date / Time No Known Drug Allergies Allergy Verified 08/12/18 18:23 - Social History Does the pt smoke?: No Smoking Status: Never smoker Does the pt drink ETOH?: No Does the pt have substance abuse?: No - Immunizations Immunizations are current?: Yes - POLST Patient has POLST: No PD ED PE NORMAL - Vitals Vital signs reviewed: Yes - General General: Alert and oriented X 3, No acute distress - Respiratory Respiratory: No respiratory distress, Clear bilaterally - Abdomen Abdomen: Other (No tenderness but she does have a distended belly with positive fluid wave and bedside ultrasound shows ascites, marked during exam for paracentesis.) - Neuro Neuro: Alert and oriented X 3, Normal speech Results - Vitals Vitals: Vital Signs - 24 hr 08/16/18 08/16/18 08/16/18 18:50 19:46 20:00 Temperature 36.8 C Heart Rate 73 74 73 Respiratory 20 16 16 Rate Blood Pressure 110/59 L 118/73 112/56 L O2 Saturation 96 93 99 08/16/18 08/16/18 08/16/18 20:17 20:47 21:16 Temperature Heart Rate 74 71 71 Respiratory 17 15 20 Rate Blood Pressure 118/61 125/74 110/83 H O2 Saturation 98 92 97 08/16/18 08/16/18 08/16/18 21:35 21:58 22:17 Temperature Heart Rate 75 76 74 Respiratory 18 15 18 Rate Blood Pressure 108/84 H 120/79 119/82 H O2 Saturation 92 92 93 Oxygen O2 Source Room air - EKG (time done) 1901 Rate: Rate (enter#) (76) Rhythm: Atrial fibrillation Intervals: RBBB Ischemia: Normal ST segments Computer interpretation: Agree with computer - Labs Labs: Microbiology 08/16/18 19:40 Body Fluid Culture - Preliminary Ascities Fluid Laboratory Tests 08/16/18 08/16/18 08/16/18 19:40 19:40 19:40 WBC 5.0 RBC 4.19 L Hgb 11.4 L Hct 35.2 L MCV 83.9 MCH 27.2 MCHC 32.4 RDW 21.2 H Plt Count 249 MPV 7.6 L Neut # (Auto) 3.2 Lymph # (Auto) 1.0 L [place] # (Auto) 0.5 Eos # (Auto) 0.2 Baso # (Auto) 0.1 Absolute Nucleated RBC 0.00 Nucleated RBC % 0.1 Manual Slide Review Indicated Platelet Estimate NORMAL (130-450,000) Platelet Morphology NORMAL APPEARANCE RBC Morph Micro Appear 2+ POIKILOCYTOSIS PT 15.2 H INR 1.3 H APTT 39.9 H Sodium 136 Potassium 3.0 L Chloride 96 L Carbon Dioxide 29 Anion Gap 11.0 BUN 20 Creatinine 1.3 H Estimated GFR (MDRD) 45 L Glucose 108 H Calcium 8.7 Total Bilirubin 0.9 AST 26 ALT 17 Alkaline Phosphatase 257 H Total Protein 6.6 L Albumin 3.6 Globulin 3.0 Albumin/Globulin Ratio 1.2 Lipase 35 Serum HCG, Qual Fluid Source Fluid Color Fluid Clarity Fluid WBC Fluid RBC Fluid Neutrophils % Fluid Lymphocytes % Fluid Monocytes % Fluid Eosinophils % Fluid Macrophages % Fld Mesothelial Cell % Blood Type Antibody Screen 08/16/18 08/16/18 08/16/18 19:40 19:40 19:40 WBC RBC Hgb Hct MCV MCH MCHC RDW Plt Count MPV Neut # (Auto) Lymph # (Auto) [place] # (Auto) Eos # (Auto) Baso # (Auto) Absolute Nucleated RBC Nucleated RBC % Manual Slide Review Platelet Estimate Platelet Morphology RBC Morph Micro Appear PT INR APTT Sodium Potassium Chloride Carbon Dioxide Anion Gap BUN Creatinine Estimated GFR (MDRD) Glucose Calcium Total Bilirubin AST ALT Alkaline Phosphatase Total Protein Albumin Globulin Albumin/Globulin Ratio Lipase Serum HCG, Qual NEGATIVE Fluid Source PERITONEAL Fluid Color RED Fluid Clarity BLOODY Fluid WBC 165 Fluid RBC [id number] Fluid Neutrophils % 10 Fluid Lymphocytes % 52 Fluid Monocytes % 0 Fluid Eosinophils % 0 Fluid Macrophages % 10 Fld Mesothelial Cell % 28 Blood Type A POSITIVE Antibody Screen NEGATIVE 08/16/18 21:50 WBC RBC Hgb 11.4 L Hct 35.3 L MCV MCH MCHC RDW Plt Count MPV Neut # (Auto) Lymph # (Auto) [place] # (Auto) Eos # (Auto) Baso # (Auto) Absolute Nucleated RBC Nucleated RBC % Manual Slide Review Platelet Estimate Platelet Morphology RBC Morph Micro Appear PT INR APTT Sodium Potassium Chloride Carbon Dioxide Anion Gap BUN Creatinine Estimated GFR (MDRD) Glucose Calcium Total Bilirubin AST ALT Alkaline Phosphatase Total Protein Albumin Globulin Albumin/Globulin Ratio Lipase Serum HCG, Qual Fluid Source Fluid Color Fluid Clarity Fluid WBC Fluid RBC Fluid Neutrophils % Fluid Lymphocytes % Fluid Monocytes % Fluid Eosinophils % Fluid Macrophages % Fld Mesothelial Cell % Blood Type Antibody Screen - Rads (name of study) CT A/P with IV contrast Radiology: EMP read contemporaneously (1. New small bilateral pleural effusions left greater than right with portions appearing loculated at the left lateral and anterior base. New minimal lingular consolidation. 2. Large ascites. No definite evidence for hemoperitoneum. 3. Heterogeneous liver. Early arterial phase. Small hypervascular lesion seen laterally in the right hepatic lobe measuring 9 mm. Small hypervascular lesion seen at the inferior aspect of the right hepatic lobe measuring 8 mm. There are a couple of hypervascular lesions seen in the lateral segment left hepatic lobe measuring 6 mm. 3 month follow-up MR or CT liver mass protocol recommended. These could represent hypervascular hepatomas and/or vascular metastasis. 4. Splenomegaly. 5. Moderate to severe anasarca, increased. 6. See above.) Procedures - Paracentesis Preparation: Consent obtained (written from pt) Location: RLQ Technique: Z-tract, Catheter over needle Fluid: Bloody (the procedure was aborted after about 100ml beause the fluid was very bloody) PD MEDICAL DECISION MAKING - ED course ED course: 42-year-old woman status post remote heart transplant presents requesting therapeutic paracentesis for recurrent ascites. Consent was obtained and the procedure was begun but aborted almost immediately because the fluid was very bloody, 2 IVs were placed and repeat labs were drawn and she was sent for a CT. To my eye on a wet read there is no free air and I do not see any contrast leak or blush. This is reassuring. I discussed the case by phone with Dr. 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 Hernandez. He notes that they did do a paracentesis 10 days ago per the chart and it was straw-colored fluid at the time. He recommended transfer to the [facility] for at least observation. I spoke with Dr. Rodríguez, Cardiology/transplant at [facility] accepted her in transport but noted that they would be doing serial H&H's there and probably no other intervention except for follow-up on the liver lesions. They do not have beds and probably would not for about 48 hours. As such we will keep her in the emergency department. At this point a second H&H was done and stable from the first so we will do another one in the morning and discharge if stable. Departure - Departure Clinical Impression: Status post heart transplant, Hemoperitoneum CHF NYHA class III (symptoms with mildly strenuous activities) Qualifiers: Congestive heart failure type: unspecified Qualified Code(s): I50.9 - Heart failure, unspecified Ascites Qualifiers: Ascites type: other type Qualified Code(s): R18.8 - Other ascites Condition: Stable Record reviewed to determine appropriate education?: Yes Comments: Follow-up in 2 days with your physician in [place]. Let him know that the CAT scan showed: 1. New small bilateral pleural effusions left greater than right with portions appearing loculated at the left lateral and anterior base. New minimal lingular consolidation. 2. Large ascites. No definite evidence for hemoperitoneum. 3. Heterogeneous liver. Early arterial phase. Small hypervascular lesion seen laterally in the right hepatic lobe measuring 9 mm. Small hypervascular lesion seen at the inferior aspect of the right hepatic lobe measuring 8 mm. There are a couple of hypervascular lesions seen in the lateral segment left hepatic lobe measuring 6 mm. 3 month follow-up MR or CT liver mass protocol recommended. These could represent hypervascular hepatomas and/or vascular metastasis. 4. Splenomegaly. 5. Moderate to severe anasarca, increased.
[2018-08-16] MEDS ORDERED: LORazepam 2 MG/ML VIAL IVP STA (19:45)
[2018-08-16] MEDS ORDERED: HYDROmorphone 1 MG/ML CARPUJECT IVP STA ×2 (19:45→20:40)
[2018-08-16 20:01] LABS: INR 1.3 (0.8-1.2); PT - PROTHROMBIN TIME 15.2 secs (9.9-12.6)
[2018-08-16 20:03] LABS: BASOPHILS # (AUTO) 0.1 10^3/uL (0.0-0.1); BASOPHILS % (AUTO) 2.1 %; EOSINOPHILS # (AUTO) 0.2 10^3/uL (0.0-0.7); EOSINOPHILS % (AUTO) 3.3 %; HGB - HEMOGLOBIN 11.4 g/dL (12.0-16.0); LYMPHOCYTES % (AUTO) 19.1 %; MEAN CORPUSCULAR HEMOGLOBIN 27.2 pg (27.0-31.0); MEAN CORPUSCULAR HGB CONC 32.4 g/dL (32.0-36.0); MEAN CORPUSCULAR VOLUME 83.9 fL (81.0-99.0); MEAN PLATELET VOLUME 7.6 fL (7.9-10.8); MONOCYTES # (AUTO) 0.5 10^3/uL (0.0-1.0); MONOCYTES % (AUTO) 10.9 %; NEUTROPHILS # (AUTO) 3.2 10^3/uL (1.5-6.6); NEUTROPHILS % (AUTO) 64.6 %; PLT - PLATELET COUNT 249 10^3/uL (130-450); RED BLOOD COUNT 4.19 10^6/uL (4.20-5.40); RED CELL DISTRIBUTION WIDTH 21.2 % (12.0-15.0)
[2018-08-16] MEDS ORDERED: IOPAMIDOL-300 100 ML VIAL ONE (20:03)
[2018-08-16 20:11] LABS: ALBUMIN 3.6 g/dL (3.2-5.5); ALBUMIN/GLOBULIN RATIO 1.2 (1.0-2.2); BILIRUBIN,TOTAL 0.9 mg/dL (0.2-1.0); CALCIUM 8.7 mg/dL (8.5-10.3); CREATININE 1.3 mg/dL (0.4-1.0); TOTAL PROTEIN 6.6 g/dL (6.7-8.2)
[2018-08-16] MEDS ORDERED: IOPAMIDOL-300 100 ML VIAL IVP ONE (20:40)
[2018-08-16 20:49] LABS: BF COLOR RED; BF SOURCE PERITONEAL; CC,BF RBC 290211 /mm^3
[2018-08-16 20:53] LABS: PLATELET ESTIMATE, MANUAL NORMAL (130-450,000) (NORMAL); PLATELET MORPHOLOGY NORMAL APPEARANCE (NORMAL)
--- NOTE | 2018-08-16 21:13 | CT Report ---
Reason: IV only, bloody paracentesis tap Procedure Date: 08/16/2018 Accession Number: [id number] / [id number] Procedure: CT - Abdomen/Pelvis W/ CPT Code: FULL RESULT: EXAM: CT ABDOMEN AND PELVIS EXAM DATE: 08/16/2018 08:38 PM. CLINICAL HISTORY: IV only, bloody paracentesis tap. COMPARISONS: Chest angiogram 04/02/2017 5:20 PM. TECHNIQUE: Routine helical CT imaging was performed through the abdomen and pelvis. IV contrast: Isovue 300 100 mL. Enteric contrast: No. Reconstructions: Coronal and sagittal. In accordance with CT protocol optimization, one or more of the following dose reduction techniques were utilized for this exam: automated exposure control, adjustment of mA and/or KV based on patient size, or use of iterative reconstructive technique. FINDINGS: Lung bases: Prominent heart size. Small pericardial effusion. Small bilateral pleural effusions left greater than right with portions loculated on the left side at the anterior and lateral aspect at the base. These are new. New minimal consolidation at the lingula. Liver: Heterogeneous liver. Small hypervascular lesion seen laterally in the right hepatic lobe measuring 9 mm. Small hypervascular lesion seen at the inferior aspect of the right hepatic lobe measuring 8 mm. There are a couple of hypervascular lesions seen in the lateral segment left hepatic lobe measuring 6 mm. Early arterial phase. Gallbladder: Unremarkable. Bile ducts: Unremarkable. Pancreas: Unremarkable. Breath spleen Spleen: 14.8 cm. Adrenals: Unremarkable. Kidneys: No hydronephrosis. Bowel: Large amount of ascites, Hounsfield units are low. No definite evidence for hemoperitoneum. No hematoma seen. No evidence for bowel obstruction. No free air. Pelvis: The bladder is decompressed. The uterus is unremarkable. Moderate to severe diffuse anasarca, increased. Vascular structures: No acute findings. Bones: No acute bone findings. Congenital fusion of L4 and L5. IMPRESSION: 1. New small bilateral pleural effusions left greater than right with portions appearing loculated at the left lateral and anterior base. New minimal lingular consolidation. 2. Large ascites. No definite evidence for hemoperitoneum. 3. Heterogeneous liver. Early arterial phase. Small hypervascular lesion seen laterally in the right hepatic lobe measuring 9 mm. Small hypervascular lesion seen at the inferior aspect of the right hepatic lobe measuring 8 mm. There are a couple of hypervascular lesions seen in the lateral segment left hepatic lobe measuring 6 mm. 3 month follow-up MR or CT liver mass protocol recommended. These could represent hypervascular hepatomas and/or vascular metastasis. 4. Splenomegaly. 5. Moderate to severe anasarca, increased. 6. See above. [facility]
[2018-08-16] MEDS ORDERED: ONDANSETRON 4 MG/2 ML VIAL IVP STA (21:21)
[2018-08-16 21:35] LABS: HCG,QUALITATIVE BLOOD NEGATIVE
[2018-08-16 21:40] LABS: EOSINOPHILS %,BODY FLUID 0 %; LYMPHOCYTES %,BODY FLUID 52
[2018-08-16 21:41] LABS: MACROPHAGES %,BODY FLUID 10 %; MESOTHELIAL %, BF 28 %; MONOCYTES %,BODY FLUID 0 %
[2018-08-16 21:55] LABS: HGB - HEMOGLOBIN 11.4 g/dL (12.0-16.0)
[2018-08-16] MEDS ORDERED: POTASSIUM BICARB 25 MEQ TABLET PO STA (23:02)
[2018-08-17] MEDS ORDERED: HYDROmorphone 1 MG/ML CARPUJECT IVP STA ×2 (00:51→03:28)
[2018-08-17 04:56] LABS: HGB - HEMOGLOBIN 11.3 g/dL (12.0-16.0)
[2018-08-17] MEDS ORDERED: oxyCODONE 5 MG TABLET PO STA (06:20)
[2018-08-17 08:31] VITALS: BP 119/75
== END 2018-08-17 08:38 | disposition home or self-care (01) ==
LOC: ED 18:44
DX: K66.1 Hemoperitoneum (principal); R18.8 Other ascites; I50.9 Heart failure, unspecified; I48.91 Unspecified atrial fibrillation; I45.10 Unspecified right bundle-branch block; I25.10 Atherosclerotic heart disease of native coronary artery without angina pectoris; J90 Pleural effusion, not elsewhere classified; R16.1 Splenomegaly, not elsewhere classified; K76.89 Other specified diseases of liver; Z94.1 Heart transplant status
CPT/HCPCS: 36415; 49082; 74177; 80053; 83690; 84703; 85014; 85018; 85025; 85610; 85730; 86850; 86900; 86901; 87070; 87205; 89051; 93005; 96374; 96375; 96376; 99284; 99285; A9270; J1170; J2060; Q9967